=== PATIENT | female | born 1990 | race Two or more races ===

== ENCOUNTER 2025-01-27 16:00 | Inpatient (IN) | payer MEDICAID, SELFPAY ==
[2025-01-27 16:01] VITALS: BMI 32.0
[2025-01-27 16:27] VITALS: BP 119/79; PULSE 130; RESP 22; TEMP 39.4; O2SAT 98
--- NOTE | 2025-01-27 16:35 | PC.NURSE ---
sepsis alert called
--- NOTE | 2025-01-27 16:36 | XR_ITS ---
EXAMINATION: PA lateral chest 2 views TECHNIQUE: Upright PA lateral chest 2 views Date and time: January 27, 2025, 1643 hours INDICATIONS: Fever cough and shortness of breath 3 days. FINDINGS: Early right perihilar right basilar pneumonia Normal heart size The Greg structures are intact IMPRESSION: Early right perihilar right basilar pneumonia
--- NOTE | 2025-01-27 16:37 | XR_ITS ---
Examination: CT abdomen with intravenous contrast CT pelvis with intravenous contrast 2-D coronal reconstructions 2-D sagittal reconstructions Date and time of exam: January 27, 20252007 hours INDICATIONS: Onset right lower abdominal pain today. CTDI: vol (mGy) 10.3 DLP: (mGycm) 550 Technique: Multiple axial sections of the abdomen and pelvis have been obtained. 64 slice high-resolution scanner used. 3 mm axial sections have been obtained, post intravenous injection 60 cc [id number] 2-D sagittal, coronal reconstructions obtained. Low dose protocols were performed. One or more of the following dose reduction techniques were used; automated exposure control, adjustment of the mA and/or KV according to patient size, use of iterative reconstruction technique. Findings: No focal liver or splenic lesions Cholelithiasis No pancreatic edema Normal adrenal glands No renal or ureteral calculi, no hydronephrosis Aorta normal size Thickened fluid-filled inflamed appendix medial to the cecum, axial images 143 through 147 No pelvic abscess No pelvic mass Urinary bladder intact IMPRESSION: Acute appendicitis, no pelvic abscess
--- NOTE | 2025-01-27 16:37 | PD.EDRME ---
Rapid Medical Screening Exam [facility] Arrival date/time: 01/27/25 16:00 34-year-old female with no known medical history presents to the emergency room with a chief complaint of fevers, right lower quadrant abdominal pain, nausea, vomiting x 2 days I have greeted and performed a focused initial assessment of this patient. A comprehensive ED assessment and evaluation of the patient, analysis of all test results, and completion of the medical decision making process will be conducted by additional ED providers. Chief Complaint: General Adult/Misc Complain Time Seen by Provider: 01/27/25 16:12 Vital signs: Vital Signs Temperature 103 F H 01/27/25 16:27 Pulse Rate 130 H 01/27/25 16:27 Respiratory Rate 22 H 01/27/25 16:27 Blood Pressure 119/79 01/27/25 16:27 Pulse Oximetry (%) 98 01/27/25 16:27 Oxygen Delivery Method Room Air 01/27/25 16:27 Vital signs reviewed by provider: Yes Exam: Patient has tenderness with palpation in the right lower quadrant and epigastric area of the patient's abdomen. Patient has a strong and regular rhythm S1 and S2 noted Clinical Impression: Appendicitis/gastroenteritis/urinary tract infection/sepsis
[2025-01-27 16:58] VITALS: TEMP 39.4
[2025-01-27 16:58] LABS: Lactate (Lactic Acid) 1.3 mMol/L (0.4-2.0)
[2025-01-27] MEDS: ACETAMINOPHEN 500 MG TABLET 1000 MG PO (16:58)
[2025-01-27 17:01] LABS: Basophils # (Auto) 0.1 Thou/mm3 (0.0-0.2); Basophils % (Auto) 1 % (0-2.5); Eosinophils # (Auto) 0.0 Thou/mm3 (0.0-0.5); Eosinophils % (Auto) 0 % (0-10); Hematocrit 43.7 % (36.0-46.0); Hemoglobin 15.3 g/dL (12.0-16.0); Immature Granulocytes Auto 0.03 Thou/mm3 (0.00-0.00); Lymphocytes # (Auto) 0.7 Thou/mm3 (1.0-4.8); Lymphocytes % (Auto) 9 % (10-50); Mean Corpuscular HGB Conc 35.0 g/dl (31.0-37.0); Mean Corpuscular Hemoglobin 31.5 pg (25.0-35.0); Mean Corpuscular Volume 90 fL (80-100); Monocytes # (Auto) 0.5 Thou/mm3 (0.0-0.8); Monocytes % (Auto) 6 % (0-12); Neutrophils # (Auto) 6.6 Thou/mm3 (1.8-7.7); Neutrophils % (Auto) 85 % (37-80); Nucleated Red Blood Cell # 0.00 Thou/mm3 (0.00-0.00); Nucleated Red Blood Cell % 0 /100 WBC (0); Platelet Count 162 Thou/mm3 (140-440); RDW Standard Deviation 41.3 fL (36.4-46.3); Red Blood Count 4.85 Miln/mm3 (4.00-5.20); White Blood Count 7.8 Thou/mm3 (3.6-11.0)
[2025-01-27 17:42] LABS: Alanine Aminotransferase 43 U/L (10-49); Albumin, Serum 4.9 gm/dL (3.5-5.0); Albumin/Globulin Ratio 1.8 (1.2-2.2); Alkaline Phosphatase 107 U/L (46-116); Anion Gap 11 (7-16); Aspartate Amino Transferase 27 U/L (0-34); BUN/Creatinine Ratio 14 Ratio (12-20); Bilirubin,Total 0.8 mg/dL (0.3-1.2); Blood Urea Nitrogen 14 mg/dL (9-23); Calcium 9.8 mg/dL (8.3-10.6); Calcium (Corrected) 9.8 mg/dL (8.5-10.1); Carbon Dioxide 24.5 mMol/L (20.0-31.0); Chloride 100 mMol/L (98-107); Creatinine (Component) 1.0 mg/dL (0.6-1.3); Estimated Creatinine Clearance 78.8 mL/min (>60); Globulin 2.8 gm/dL (2.3-3.5); Glucose 99 mg/dL (74-106); Osmolality,Calculated 270 (275-295); Potassium 3.6 mMol/L (3.4-5.1); Procalcitonin 0.22 ng/ml (0.0-0.49); Sodium 135 mMol/L (136-145); Total Protein 7.7 gm/dL (5.7-8.2); eGFR > 60 See Note
[2025-01-27 17:49] LABS: Collection Type, Urine Clean Catch
[2025-01-27 18:08] LABS: Bilirubin,Urine Negative (Negative); Blood,Urine 2+ (Negative); Clarity,Urine Clear (Clear/Hazy); Color,Urine Yellow (Lt Yel-Yel); Glucose, Urine Negative (Negative); Ketones,Urine 4+ (Negative); Leukocyte Esterase,Urine Negative (Negative); Nitrite,Urine Negative (Negative); PH,Urine 6.5 (5.0-7.0); Protein,Urine 2+ (Neg - Trace); RBC,Urine 12 /hpf (0-3); Specific Gravity,Urine 1.032 (1.001-1.035); Squamous Epithelial Cell,Urine 7 /hpf (0-5); Urobilinogen,Urine Negative mg/dL (0.0-1.0); WBC,Urine 7 /hpf (0-5)
[2025-01-27 18:15] LABS: Influenza A Ag Negative; Influenza B Ag Negative
[2025-01-27 18:48] VITALS: BP 111/69; PULSE 118; RESP 19; TEMP 37.7; O2SAT 99
[2025-01-27] MEDS: SODIUM CHLORIDE 0.9% 1000 ML 1,000 ML 999 ML IV ×2 (18:57→21:22)
[2025-01-27 19:30] LABS: HCG Qualitative,Urine Negative
--- NOTE | 2025-01-27 20:32 | PD.EDADULT ---
ED General RME/HPI General Chief complaint: General Adult/Misc Complain Stated complaint: MULTIPLE COMPLAINTS Time Seen by Provider: 01/27/25 16:12 Arrival date/time: 01/27/25 16:00 RME / HPI RME / HPI narrative: 01/27/25 16:00 34-year-old female with no known medical history presents to the emergency room with a chief complaint of fevers, right lower quadrant abdominal pain, nausea, vomiting x 2 days I have greeted and performed a focused initial assessment of this patient. A comprehensive ED assessment and evaluation of the patient, analysis of all test results, and completion of the medical decision making process will be conducted by additional ED providers. Dr. Ingram?s Main ED Evaluation: 34yo female presenting with flu-like symptoms characterized by headache, generalized abdominal pain, ongoing diarrhea (watery, non-explosive) in excess of 10 episodes over the last several days. No URI or cough. No urgency, frequency, or dysuria. No obvious infectious exposures or restaurant food ingestion. PMH unremarkable. Patient notes she's on a weight loss medication. PSH and social history are unremarkable. NKA. Related Data Home Medications ?Medication ?Instructions ?Recorded ?Confirmed No Known Home Medications 01/17/21 01/27/25 Allergies Allergy/AdvReac Type Severity Reaction Status Date / Time No Known Allergies Allergy Verified 01/27/25 16:04 Review of Systems Review of Systems Systems Reviewed: All systems reviewed, normal except as documented Past Medical History Past Medical History NEUROLOGIC: Negative Neurological Disorders CARDIAC: Negative Cardiac Disorders or Congestive Heart Failure RESPIRATORY: Negative Chronic Obstructive Pulmonary Disease (COPD) or Asthma GASTROINTESTINAL: Negative Gastrointestinal Disorders or Hepatitis GENITOURINARY: Negative Genitourinary Disorders or Renal Disease MUSCULOSKELETAL: Negative Musculoskeletal Disorders ENDOCRINE: Negative Endocrine Disorders, Diabetes Mellitus Type 1 or Diabetes Mellitus Type 2 HEMATOLOGIC: Negative Blood Disorders or Sickle Cell Disease OTHER HISTORY: Positive Chicken Pox; Negative Hospitalization, Autoimmune Disease, Down Syndrome, Developmental Delay, Shingles, Falls, Blood Transfusions, Blood Transfusion Reaction, Anesthesia Reactions, Organ Transplant, Chemotherapy, Radiation Therapy, Hyperbaric Therapy, MRSA, VRSA, Vancomycin-Resistant Enterococci, Human Immunodeficiency Virus (HIV), Measles, Mumps, Rubella (Tamazight Measles), Pertussis, Clostridium Difficile or Cancer Family History FAMILY HISTORY: Positive Family Cardiac Disorders (paternal father high bp); Negative Family Psychiatric Problems, Family Respiratory Disorders, Family Gastrointestinal Problems, Family Cancer, Family Surgery or Family Anesthesia Reaction Surgical History SURGICAL: Negative Section or Organ Transplant Social History SMOKING STATUS: Never smoker ED Exam Narrative Physical exam: GENERAL APPEARANCE: alert and oriented x 4, nontoxic, no acute distress VITALS: All vitals were reviewed and the pulse ox is 99% on room air, which is normal according to my interpretation. Febrile and tachycardic. HEENT: Normocephalic, atraumatic; pupils equal, round, reactive to light; EOMI; mucous membranes pink, moist; mildly injected posterior pharynx, no exudates or tonsillar hypertrophy NECK: Supple LUNGS: CTABL; no wheezes, no rales, no rhonchi HEART: Tachycardic, regular rhythm; normal S1, S2; no murmurs ABDOMEN: non distended; obese, soft, no tenderness, no guarding, no gross peritoneal findings EXTREMITIES: atraumatic; no edema NEUROLOGIC: awake; alert and oriented x4; cranial nerves II-XII grossly intact; no focal sensory or motor deficits PSYCHIATRIC: appropriate mood and affect SKIN: warm, dry, normal color; no rashes Course Course Course Narrative: 1635: Sepsis alert initiated by the initial PA. Orders made at this time are congruent with ED Adult Sepsis Order List. Re-evaluation is to be completed. CXR is ordered for determining the etiology of fever. 1856: NS IVF started. 2127: Sepsis reassessment performed consisting of lab review, vitals, physical exam including auscultation of heart, lungs, and visual evaluation of capillary refills, mucosal membranes and extremities. Quality Measures Current suspected stage: ruled out Possible source: GI tract/intra-abdominal Blood cultures ordered: yes Antibiotic ordered: Yes Pertinent labs: 01/27/25 16:40 Lactic Acid 1.3 mMol/L (0.4-2.0) Procalcitonin 0.22 ng/ml (0.0-0.49) sepsis Orders Category Date Time Status Bedside COVID-19 Antigen Test NOW Care 01/27/25 16:[address] Screening NOW Care 01/27/25 16:37 Active Insert IV STAT Care 01/27/25 16:[address] abdomen pelvis w con Stat Exams 01/27/25 16:37 Completed XR chest 2V Stat Exams 01/27/25 16:36 Completed Blood Culture (Lab) Stat Lab 01/27/25 16:42 Received CBC Stat Lab 01/27/25 16:40 Completed CMP [Comprehensive Metabolic Panel] Stat Lab 01/27/25 16:40 Completed HCG Qualitative,Urine Stat Lab 01/27/25 19:19 Completed Influenza A & B Rapid Panel Stat Lab 01/27/25 16:56 Completed Lactate (Lactic Acid) Stat Lab 01/27/25 16:40 Completed Procalcitonin Stat Lab 01/27/25 16:40 Completed UA [Urinalysis] Stat Lab 01/27/25 17:00 Completed Urine Culture Stat Lab 01/27/25 17:00 Received Acetaminophen Tab [Tylenol ES Tab] Med 01/27/25 16:41 Discontinued 1,000 mg PO X1 ONE Cefoxitin [Mefoxin Inj] 1 gm Med 01/27/25 20:45 Discontinued SODIUM CHLORIDE 0.9% (Popper) [Ns 0.9% (P)] 50 ml IV Q6HR Morphine* Inj Med 01/27/25 20:42 Discontinued 4 mg IVP X1 ONE Piper/Tazo Inj [Zosyn Inj] 4.5 gm Med 01/27/25 22:00 Discontinued Sodium Chloride 0.9% (Pop) [NS 0.9% mini bag] 100 ml IV Q8HR Sodium Chloride 0.9% 1000 ml [Ns] 1,000 ml Med 01/27/25 16:42 Discontinued IV 999 mls/hr Sodium Chloride 0.9% 1000 ml [Ns] 1,000 ml Med 01/27/25 20:41 Discontinued IV 999 mls/hr Vital Signs Vital signs: Vital Signs Temperature 103 F H 01/27/25 16:27 Pulse Rate 130 H 01/27/25 16:27 Respiratory Rate 22 H 01/27/25 16:27 Blood Pressure 119/79 01/27/25 16:27 Pulse Oximetry (%) 98 01/27/25 16:27 Oxygen Delivery Method Room Air 01/27/25 16:27 Discharge Plan Plan Patient Disposition: Admit Acute Care w/in Hospital Problem List Clinical Impression: Acute appendicitis MDM Narrative MDM hospital course (for use when minimal MDM required): Scribe Attestation: 01/27/25 Dixie Burgess am scribing for and in the presence of Dr. Ingram. 34yo female presenting with flu-like symptoms characterized by headache, generalized abdominal pain, ongoing diarrhea (watery, non-explosive) in excess of 10 episodes over the last several days. No URI or cough. No urgency, frequency, or dysuria. Please see PE findings. Lab markers including CBC and chemistries excluding low normal K 3.6. UA with evidence of dehydration with 4+ ketonuria, contaminated specimen. IV was established and was hydrated aggressively to correct volume deficit. Patient was additionally administered antipyretics, analgesics, antiemetic, and empiric antibiotic as the patient ruled in for sepsis. Patient referred for CT abdomen pelvis, which showed acute appendicitis. Surgeon contacted and suggests hospitalist to admit. Patient remained hemodynamically stable and was admitted to the hospitalist service. Dx: acute appendicitis Clinical Information Provided by: patient Medical Records reviewed [facility] (Per chart review, patient has no relevant previous ED visits or admissions to this facility.) Meds/Rx considered, not ordered None Labs/Rad/Tests considered, not ordered None Chronic Illness/Social Conditions which may negatively complicate care or outcome(s)-explain: None or not applicable Labs Labs: interpreted by me Imaging Imaging interpretation: interpreted by sd Imaging Interpretation(s): [facility] Signed Patient: SANTA CORNEJO. Record#: [id number] Birthdate: 1990 Age/Sex: 34 / F Location: [facility] Attending Dr: Ordering Physician: Tucker Rosa Date of Service: 01/27/25 Procedure(s): XR chest 2V Accession Number(s): [id number] cc: Tucker Rosa; Julio Porras MD~ EXAMINATION: PA lateral chest 2 views TECHNIQUE: Upright PA lateral chest 2 views Date and time: January 27, 2025, 1643 hours INDICATIONS: Fever cough and shortness of breath 3 days. FINDINGS: Early right perihilar right basilar pneumonia Normal heart size The Greg structures are intact IMPRESSION: Early right perihilar right basilar pneumonia Dictated By: Julio Porras MD Signed By: <Electronically signed by Julio Porras MD in OV> 01/27/25 9423 [facility] Signed Patient: SANTA CORNEJO Record#: [id number] Birthdate: 1990 Age/Sex: 34 / F Location: [facility] Attending Dr: Ordering Physician: Tucker Rosa Date of Service: 01/27/25 Procedure(s): CT abdomen pelvis w con Accession Number(s): [id number] cc: Tucker Rosa; Julio Porras MD; NO PRIMARY/FAMILY,PHYSICIAN~ Examination: CT abdomen with intravenous contrast CT pelvis with intravenous contrast 2-D coronal reconstructions 2-D sagittal reconstructions Date and time of exam: January 27, 2025, 2007 hours INDICATIONS: Onset right lower abdominal pain today. CTDI: vol (mGy) 10.3 DLP: (mGycm) 550 Technique: Multiple axial sections of the abdomen and pelvis have been obtained. 64 slice high-resolution scanner used. 3 mm axial sections have been obtained, post intravenous injection 60 cc [id number]-370 2-D sagittal, coronal reconstructions obtained. Low dose protocols were performed. One or more of the following dose reduction techniques were used; automated exposure control, adjustment of the mA and/or KV according to patient size, use of iterative reconstruction technique. Findings: No focal liver or splenic lesions Cholelithiasis No pancreatic edema Normal adrenal glands No renal or ureteral calculi, no hydronephrosis Aorta normal size Thickened fluid-filled inflamed appendix medial to the cecum, axial images 143 through 147 No pelvic abscess No pelvic mass Urinary bladder intact IMPRESSION: Acute appendicitis, no pelvic abscess Dictated By: Julio Porras MD Signed By: <Electronically signed by Julio Porras MD in OV> 01/27/252 Medication Administration(s) Medication Administration History Acetaminophen (Acetaminophen 325 Mg Tablet) 650 mg PO Q6H PRN PRN Reason: PAIN 1-3 OR FEVER > 100.4 Stop: 02/26/25 22:31 Lactated Ringer's (Lactated Ringers) 1,000 mls @ 75 mls/hr IV .[id number] JENNIFER Stop: 01/28/25 12:04 Last Admin: 01/27/25 23:44 Dose: 75 mls/hr Documented By: SUMAYA Ciprofloxacin/Dextrose (Cipro Ivpb) 400 mg in 200 mls @ 200 mls/hr IV Q12HR [facility] Stop: 02/03/25 22:39 Last Admin: 01/27/25 23:44 Dose: 200 mls/hr Documented By: SUMAYA Metronidazole (Flagyl 500 Mg Iv) 500 mg in 100 mls @ 200 mls/hr IV Q8HR [facility] Stop: 02/03/25 22:40 Last Admin: 01/28/25 05:25 Dose: 200 mls/hr Documented By: Infusion: 01/28/25 00:15 Dose: Infused Documented By: Admin: 01/27/25 23:45 Dose: 200 mls/hr Documented By: SUMAYA Morphine Sulfate (Morphine Sulf Inj 4 Mg/Ml Vial) 2 mg IVP Q4HR PRN PRN Reason: PAIN SCALE 7-10 (Severe Stop: 02/01/25 22:31 Ondansetron HCl (Ondansetron Inj 2 Mg/Ml Inj 2 Ml) 4 mg IVP Q6H PRN; Protocol PRN Reason: NAUSEA OR VOMITING Stop: 02/26/25 22:31 Discontinued Medications Acetaminophen (Acetaminophen 500 Mg Tablet) 1,000 mg PO X1 ONE Stop: 01/27/25 16:42 Last Admin: 01/27/25 16:58 Dose: 1,000 mg Documented By: TIM Acetaminophen (Acetaminophen 325 Mg Tablet) 650 mg PO Q6H PRN PRN Reason: PAIN OR FEVER > 100.4 Stop: 02/26/25 22:31 Sodium Chloride (Ns) 1,000 mls @ 999 mls/hr IV .Q1H1M ONE Stop: 01/27/25 17:42 Last Infusion: 01/27/25 20:58 Dose: Infused Documented By: Admin: 01/27/25 18:57 Dose: 999 mls/hr Documented By: TIM Sodium Chloride (Ns) 1,000 mls @ 999 mls/hr IV .Q1H1M ONE Stop: 01/27/25 21:41 Last Infusion: 01/27/25 22:25 Dose: Infused Documented By: Admin: 01/27/25 21:22 Dose: 999 mls/hr Documented By: TIM Cefoxitin Sodium 1 gm/ Sodium (Chloride) 50 mls @ 100 mls/hr IV Q6HR JENNIFER Stop: 02/03/25 20:44 Last Infusion: 01/27/25 22:15 Dose: Infused Documented By: Admin: 01/27/25 21:33 Dose: 100 mls/hr Documented By: CCT Piperacillin Sod/Tazobactam (Sod 4.5 gm/ Sodium Chloride) 100 mls @ 200 mls/hr IV Q8HR JENNIFER; Protocol Stop: 02/03/25 21:59 Last Admin: 01/27/25 23:16 Dose: Not Given Documented By: CCT Non-Admin Reason: Discontinued Morphine Sulfate (Morphine Sulf Inj 4 Mg/Ml Vial) 4 mg IVP X1 ONE Stop: 01/27/25 20:43 Last Admin: 01/27/25 21:32 Dose: 4 mg Documented By: CCT Morphine Sulfate (Morphine Sulf Inj 4 Mg/Ml Vial) 2 mg IVP Q2H PRN PRN Reason: PAIN SCALE 7-10 (Severe Stop: 02/01/25 22:31 Last Admin: 01/27/25 23:58 Dose: 2 mg Documented By: WO see above Consultations/Discussions re: Management Consult #1: Date/time: 01/27/25 9:39 pm Physician, specialty, service, details: Discussed case with Dr. Subramanian from general surgery regarding consultation. Discussed patients ED course, exam findings, labs, and radiology results. Agrees to consult. Consult #2: Date/time: 01/27/25 9:41 pm Physician, specialty, service, details: Discussed case with the resident physician, attending Dr. Miramontes from Hospitalist service regarding admission. Discussed patients ED course, exam findings, labs, and radiology results. The Hospitalist agrees to accept the patient for admission. Diagnosis Differential Diagnosis ED Complaint MDM: sepsis, dehydration, electrolyte abnormality, UTI, pneumonia, viral illness
[2025-01-27 21:30] VITALS: BP 115/73; PULSE 102; RESP 18; TEMP 37.4; O2SAT 100
[2025-01-27] MEDS: MORPHINE SULF INJ 4 MG/ML VIAL IVP (21:32)
[2025-01-27] MEDS: CEFOXITIN 1 GM in SODIUM CHLORIDE 0.9% (Popper) 50 ML IV (21:33)
[2025-01-27 21:36] VITALS: BP 116/69; PULSE 102; RESP 20; TEMP 38; O2SAT 98
[2025-01-27 21:44] VITALS: TEMP 38
--- NOTE | 2025-01-27 22:32 | ESHP_ITS ---
Documentation for date of: 01/27/25 [facility] History of Present Illness History of present illness: 34-year-old female with no significant medical history presents to the ED with a 2-day history of fever, right lower quadrant abdominal pain, nausea, and vomiting. She also reports flu-like symptoms, including a headache and generalized abdominal discomfort, along with ongoing diarrhea (watery, non- explosive), occurring over 10 times in the past several days. She denies any upper respiratory symptoms such as cough or congestion. No urinary urgency, frequency, or dysuria noted. She has not had any known infectious exposures or unusual food ingestion. The patient is currently taking a Wegovy for weight loss. She mentions that since starting the medication in April 2024 she has dropped approximately 45 pounds. ED course: Initial vitals include T 103, RR 22, HR 130, BP 119/79, 98% on room air. CBC unremarkable. CMP shows sodium 135, potassium 3.6, creatinine 1.0, LFTs within normal range, procalcitonin 0.22. CT abdomen showed thickened fluid-filled inflamed appendix, concerning for acute appendicitis. Chest x-ray shows early right perihilar right basilar pneumonia. UA unremarkable and was negative for hCG. In ED patient received 2 L of sodium chloride, morphine 4 mg IV x 1 and received cefoxitin 1 g IV x 1. Past medical history: As stated above. Allergies: NKDA Family history: Noncontributory. Social history: No alcohol use, no smoking, no illicit drug use. Patient admitted for possible appendicitis, pending surgery eval in a.m. Review of Systems Review of Systems Narrative Review of Systems: All systems reviewed negative unless stated otherwise above. Exam Vital Signs Temp Pulse Resp BP Pulse Ox O2 Del Method 100.4 F 102 H 20 116/69 98 Room Air 01/27/25 21:44 01/27/25 21:36 01/27/25 21:36 01/27/25 21:36 01/27/25 21:36 01/27/25 21:36 Narrative Exam General: AOx3, no acute distress, able to speak full sentences HEENT: NC/AT, mucous membranes moist, bilateral sclera anicteric Cardiovascular: regular rate and rhythm, S1/S2 present, no murmurs appreciated Pulmonary: clear to auscultation bilaterally, no rales/rhonchi/wheezes Abdominal: soft, mild tenderness in the b/l lower quadrants in particular on the right, non-distended, no rebound/guarding, normal bowel sounds present Musculoskeletal: normal ROM, no peripheral edema Skin: warm and dry, intact, no rashes, Neuro: CN II-XII intact, no focal deficits Results: Labs 01/28/25 04:53 01/28/25 04:53 Labs: Short CBC 01/27/25 Range/Units 16:40 WBC 7.8 (3.6-11.0) Thou/mm3 Hgb 15.3 (12.0-16.0) g/dL Hct 43.7 (36.0-46.0) % Plt Count 162 (140-440) Thou/mm3 BMP 01/27/25 16:40 Sodium 135 L Potassium 3.6 Chloride 100 Carbon Dioxide 24.5 BUN 14 Creatinine 1.0 Glucose 99 Calcium 9.8 Liver Function 01/27/25 Range/Units 16:40 Total Bilirubin 0.8 (0.3-1.2) mg/dL AST 27 (0-34) U/L ALT 43 (10-49) U/L Alkaline Phosphatase 107 (46-116) U/L Albumin 4.9 (3.5-5.0) gm/dL Urine 01/27/25 Range/Units 17:00 Urine Color Yellow (Lt Yel-Yel) Urine Clarity Clear (Clear/Hazy) Urine pH 6.5 (5.0-7.0) Ur Specific Lima 1.032 (1.001-1.035) Urine Protein 2+ A (Neg - Trace) Urine Glucose (UA) Negative (Negative) Quality Measures Quality Measures VTE prophylaxis and sepsis Current suspected stage: ruled out Possible source: GI tract/intra-abdominal Blood cultures ordered: yes Antibiotic ordered: Yes Medications Home Medications and Allergies Home Medications ?Medication ?Instructions ?Recorded ?Confirmed ?Type No Known Home Medications 01/17/2101/18 History Allergies Allergy/AdvReac Type Severity Reaction Status Date / Time No Known Allergies Allergy Verified 01/27/25 16:04 Visit Medications Cefoxitin Sodium 1 gm/ Sodium (Chloride) 50 mls @ 100 mls/hr IV Q6HR JENN[facility]ER Stop: 02/03/25 20:44 Last Infusion: 01/27/25 22:15 Dose: Infused Piperacillin Sod/Tazobactam (Sod 4.5 gm/ Sodium Chloride) 100 mls @ 200 mls/hr IV Q8HR [facility]; Protocol Stop: 02/03/25 21:59 Discontinued Medications Acetaminophen (Acetaminophen 500 Mg Tablet) 1,000 mg PO X1 ONE Stop: 01/27/25 16:42 Last Admin: 01/27/25 16:58 Dose: 1,000 mg Sodium Chloride (Ns) 1,000 mls @ 999 mls/hr IV .Q1H1M ONE Stop: 01/27/25 17:42 Last Infusion: 01/27/25 20:58 Dose: Infused Sodium Chloride (Ns) 1,000 mls @ 999 mls/hr IV .Q1H1M ONE Stop: 01/27/25 21:41 Last Infusion: 01/27/25 22:25 Dose: Infused Morphine Sulfate (Morphine Sulf Inj 4 Mg/Ml Vial) 4 mg IVP X1 ONE Stop: 01/27/25 20:43 Last Admin: 01/27/25 21:32 Dose: 4 mg Assessment & Plan Plan 34-year-old female with no significant medical history presents to the ED with a 2-day history of fever, right lower quadrant abdominal pain, nausea, and vomiting. She also reports flu-like symptoms, including a headache and generalized abdominal discomfort, along with ongoing diarrhea (watery, non- explosive), occurring over 10 times in the past several days. Patient admitted for possible appendicitis, pending surgery eval in a.m. #Acute appendicitis #Intractable nausea and vomiting #Abdominal pain 2-day history of fever, right lower quadrant abdominal pain, nausea, and vomiting. Patient presented with temperature 103, HR 130, RR 22 Patient does not appear toxic Abdominal exam showed mild tenderness in the b/l lower quadrants in particular on the right CT abdomen showed thickened fluid-filled inflamed appendix, concerning for acute appendicitis. Pro-Luis unremarkable UA unremarkable Flu and COVID-negative Presentation is atypical for appendicitis. Plan ? General Surgery consulted, Dr. Sage aware, to assess in a.m. ? Started on ciprofloxacin 400 mg IV every 12 hours and metronidazole 500 mg IV every 8 hours ? N.p.o. ? Analgesia as needed ? Maintenance fluids with LR x 1 bag ? Follow-up on blood and urine culture #Diarrhea DDx likely viral, very low suspicion of bacterial (C. difficile) Ongoing diarrhea (watery, non-explosive), occurring over 10 times in the past several days No recent antibiotic use, PPI Plan ? Supportive management at this time with IV fluids and replenishment of electrolytes Health Maintenance: Diet: N.p.o. GI prophylaxis: None at this time DVT prophylaxis: SCDs as pending surgery eval in a.m. Antibiotics: Ciprofloxacin and metronidazole CODE STATUS: Full Disposition: [facility] Case discussed with my attending Dr. Miramontes, and senior resident, Dr. Dorothy Harrington MD PGY-1 Attending Provider Attestation/Addendum After examination of the patient and review of the clinical data I feel that this patient needs admission to the hospital for further treatment/evaluation. Plan of care discussed with patient and is in agreement. I Adelfo Miramontes MD, attest that I was physically present for jack portions of evaluation, and examined patient, labs and imagings and plan of care were discussed with IM residents team, and I agree with the findings and plans documented above.
--- NOTE | 2025-01-27 23:11 | PC.NURSE ---
Report given to PANCHO Walsh
[2025-01-27 23:34] VITALS: BMI 34.9
[2025-01-27] MEDS: CIPROFLOXACIN/D5w 400 MG IVPB 400 MG/200 ML BAG 200 MG IV (23:44)
[2025-01-27] MEDS: RINGERS LACTATED 1000 ML 1,000 ML 75 ML IV (23:44)
[2025-01-27] MEDS: metroNIDAZOLE/NS 500 MG IVPB 500 MG/100 ML BAG 200 MG IV (23:45)
[2025-01-27] MEDS: MORPHINE SULF INJ 4 MG/ML VIAL 2 MG IVP (23:58)
[2025-01-28] VITALS (16 sets, daily range): BP systolic 112–138; BP diastolic 52–80; PULSE 83–118; RESP 14–96; TEMP 36.2–39.6; O2SAT 95–100
[2025-01-28] MEDS: metroNIDAZOLE/NS 500 MG IVPB 500 MG/100 ML BAG 200 MG IV ×3 (05:25→21:25)
[2025-01-28 05:53] LABS: Basophils # (Auto) 0.0 Thou/mm3 (0.0-0.2); Basophils % (Auto) 0 % (0-2.5); Eosinophils # (Auto) 0.0 Thou/mm3 (0.0-0.5); Eosinophils % (Auto) 0 % (0-10); Hematocrit 35.2 % (36.0-46.0); Hemoglobin 12.1 g/dL (12.0-16.0); Immature Granulocytes Auto 0.03 Thou/mm3 (0.00-0.00); Lymphocytes # (Auto) 1.0 Thou/mm3 (1.0-4.8); Lymphocytes % (Auto) 16 % (10-50); Mean Corpuscular HGB Conc 34.4 g/dl (31.0-37.0); Mean Corpuscular Hemoglobin 31.4 pg (25.0-35.0); Mean Corpuscular Volume 91 fL (80-100); Monocytes # (Auto) 0.6 Thou/mm3 (0.0-0.8); Monocytes % (Auto) 9 % (0-12); Neutrophils # (Auto) 4.8 Thou/mm3 (1.8-7.7); Neutrophils % (Auto) 74 % (37-80); Nucleated Red Blood Cell # 0.00 Thou/mm3 (0.00-0.00); Nucleated Red Blood Cell % 0 /100 WBC (0); Platelet Count 137 Thou/mm3 (140-440); RDW Standard Deviation 42.1 fL (36.4-46.3); Red Blood Count 3.85 Miln/mm3 (4.00-5.20); White Blood Count 6.5 Thou/mm3 (3.6-11.0)
[2025-01-28 06:19] LABS: Alanine Aminotransferase 27 U/L (10-49); Albumin, Serum 3.9 gm/dL (3.5-5.0); Albumin/Globulin Ratio 2.0 (1.2-2.2); Alkaline Phosphatase 87 U/L (46-116); Anion Gap 12 (7-16); Aspartate Amino Transferase 18 U/L (0-34); BUN/Creatinine Ratio 13 Ratio (12-20); Bilirubin,Total 0.5 mg/dL (0.3-1.2); Blood Urea Nitrogen 9 mg/dL (9-23); Calcium 8.2 mg/dL (8.3-10.6); Calcium (Corrected) 8.3 mg/dL (8.5-10.1); Carbon Dioxide 23.5 mMol/L (20.0-31.0); Chloride 103 mMol/L (98-107); Creatinine (Component) 0.7 mg/dL (0.6-1.3); Estimated Creatinine Clearance 117.9 mL/min (>60); Globulin 2.0 gm/dL (2.3-3.5); Glucose 88 mg/dL (74-106); Magnesium 1.6 mg/dL (1.6-2.6); Osmolality,Calculated 273 (275-295); Phosphorous 2.5 mg/dL (2.4-5.1); Potassium 3.0 mMol/L (3.4-5.1); Sodium 138 mMol/L (136-145); Total Protein 5.9 gm/dL (5.7-8.2); eGFR > 60 See Note
--- NOTE | 2025-01-28 08:47 | PD.SURCONS ---
HPI Consult details History of present illness: 34F presenting with abdominal pain, diarrhea and fever/chills. Patient reports symptoms began 4 days ago with no clear inciting factor, she did not eat anything different, did not take any different medication and had no sick contacts. She noted diffuse abdominal pain which eventually migrated to the right lower quadrant, associate with nausea and multiple episodes of watery diarrhea. She has never had similar symptoms. Because she was not feeling better after several days at home, she sought care in ER yesterday where she had a Tmax of 103, normal WBC with no shift, however CT showing thickened and inflamed appendix. At the moment she feels slightly better with improved pain although continues to have diarrhea, nausea and abdominal tenderness especially in the right lower quadrant PMH: None PSH: None Meds: Ibuprofen as needed Allergies: NKDA Review of Systems Review of Systems ROS Unobtainable: All systems reviewed & no additional complaints except as documented Meds Home Medications and Allergies Home Medications ?Medication ?Instructions ?Recorded ?Confirmed ?Type No Known Home Medications 01/17/21 01/27/25 History Allergies Allergy/AdvReac Type Severity Reaction Status Date / Time No Known Allergies Allergy Verified 01/27/25 16:04 Exam Vital Signs Temp Pulse Resp BP Pulse Ox O2 Del Method 97.1 F 118 H 15 120/71 96 Room Air 01/28/25 07:45 01/28/25 07:45 01/28/25 07:45 01/28/25 07:45 01/28/25 07:45 01/28/25 07:45 Constitutional Constitutional: no acute distress Routine Respiratory Exam Respiratory: Present no resp distress Routine Abdominal Exam Abdominal: Present soft, tenderness (mild RLQ tenderness to deep palpation ) and rebound; Absent distended, guarding or firm Results Results: Laboratory Laboratory results: results reviewed Results: Imaging CT scan - abdomen: report reviewed and image reviewed Assessment & Plan Plan 34F presenting with abdominal pain, diarrhea and fever/chills for four days with Tmax [address] AP showing thickened and inflamed appendix. I explained to patient that her presentation is not exactly consistent with acute appendicitis, given the duration of her symptoms, degree of fever and association with watery diarrhea. She does, however, have right lower quadrant tenderness as well as rebound, totaling an Manzanares score of 5 which indicates possible appendicitis. I explained alternatives/benefits/risks of surgery including need for conversion to open, bleeding, secondary infection, as well as the possibility that if the appendix is too walled off I may not be able to safely remove it, in which case I would simply washout and possibly place a drain. Patient expressed understanding and does prefer to proceed with surgery OR this am for laparoscopic appendectomy, possible open
[2025-01-28] MEDS: CIPROFLOXACIN/D5w 400 MG IVPB 400 MG/200 ML BAG 200 MG IV ×2 (09:08→20:04)
--- NOTE | 2025-01-28 09:39 | PC.NURSE ---
Patient off the floor for surgery. Will start pottassium when she gets back on floor
--- NOTE | 2025-01-28 10:45 | SUR.PHASEI ---
PT RECEIVED TO PACU BAY 1. VSS. BREATHING EVEN AND UNLABORED. DENIES PAIN AND NAUSEA. DERMABOND INTACT TO ABDOMEN X3. REPORT FROM NURSE CHASE AND JUVENCIO JAUREGUI.
--- NOTE | 2025-01-28 10:47 | ESOP_ITS ---
Date of Procedure 01/28/25 Pre Op Diagnosis Acute appendicitis Post Op Diagnosis Minimally inflamed appendix Procedure Laparoscopic appendectomy Findings Appendix with mild inflammation, no periappendiceal adhesions or signs of peritonitis Procedure Description After discussion of risks and benefits, patient was brought to the operating luna m, SCDs were placed and general anesthesia was induced. She had already received preoperative antibiotics and was prepped and draped in the usual sterile fashion. After timeout an infraumbilical incision was made with a #15 blade and the skin was elevated with towel clamps. A Veress needle was placed through the incision and proper positioning was confirmed with a drop test at which point the abdomen was insufflated to 12 mmHg. The Veress needle was then exchanged for a 5 mm camera using a Visiport technique. There were no signs of injury from the point of entry. 2 additional ports were placed under direct vision, one 5 mm at the left lower quadrant and one 5 mm at the suprapubic region. The infraumbilical port was upsized to a 12 mm also under direct vision. Patient was placed in Trendelenburg with left side down. The appendix was easily identified by tracing the taeinea of the colon and was noted to be very minimally inflamed. It was only slightly dilated and there were no periappendiceal adhesions as typically seen with appendicitis especially of a few days' duration. I made a window between the base of the appendix and the mesoappendix using blunt dissection, and the base of the appendix was stapled with a 45 mm blue load. The mesoappendix was transected with the harmonic scalpel. The appendix was removed in an Endo Catch bag via the infraumbilical port and the infraumbilical fascia was closed with 0 Vicryl suture using Chad- Simeon. The staple line was irrigated and there were no signs of bleeding. The pelvis was also gently irrigated and there was no pus. Pneumoperitoneum was released and ports were removed under direct vision. Incisions were irrigated and infiltrated with half percent Marcaine for a total of 30 cc. Incisions were closed with 4-0 Monocryl and reinforced with Dermabond. Patient was extubated and brought to PACU in stable condition Pathology / specimen Other (Appendix) Estimated Blood Loss 25 Surgeon Cassie Subramanian MD Surgical Staff Operation Date: 01/28/25 10:45 Case Staff WINDOW COVERING SALES CONSULTANT: Seth Beverly RN First Assistant: Jennifer Garcia
--- NOTE | 2025-01-28 11:15 | SUR.PHASEI ---
REPORT CALLED TO TANYA ON MS. PT VSS. BREATHING EVEN AND UNLABORED. DENIES PAIN AND NAUSEA. DERMABOND DRESSING REMAINS CDI X3. TRANSPORTED TO ROOM VIA [facility].
[2025-01-28] MEDS: MORPHINE SULF INJ 4 MG/ML VIAL 2 MG IVP ×2 (12:15→19:29)
--- NOTE | 2025-01-28 13:11 | ESPR_ITS ---
<Statement entered by Stanford Holley MD - 01/28/25 19:09> Patient seen and examined at bedside. I discussed and supervised with the software intern physician who took care of this patient. I personally saw and examined the patient. I agree with most of the assessment and plan. Plan of care discussed with attending Dr. Mcintosh. Stanford Holley MD PGY-2 Documentation for date of: 01/28/25 Subjective Subjective Interval history: 34F with no significant PMHx presented on 01/28/2025 for evaulation of 3d hx of fever, abdominal pain, and diarrhea. Denies urinary sxs, nausea, vomiting. No sick contacts, or recent travel, or ingestion of unusual food. Patient has been on Wegovy since April 2024 and reports 45lb loss from it. Patient has been afebrile shortly after presentation, and stayed afebrile until now. additionally states that the abdominal pain with defecation. Exam Vital Signs Temp Pulse Resp BP Pulse Ox O2 Del Method O2 Flow Rate 97.5 F 85 16 113/68 95 Room Air 6 01/28/25 11:52 01/28/25 11:52 01/28/25 11:52 01/28/25 11:52 01/28/25 11:52 01/28/25 11:52 01/28/25 10:50 Narrative Exam General: AOx3, no acute distress, able to speak full sentences HEENT: NC/AT, mucous membranes moist, bilateral sclera anicteric Cardiovascular: regular rate and rhythm, S1/S2 present, no murmurs appreciated Pulmonary: clear to auscultation bilaterally, no rales/rhonchi/wheezes Abdominal: soft, non-distended, deminished bowel sounds, mild tenderness in the b/l lower quadrants in particular on the right, no guarding Musculoskeletal: normal ROM, no peripheral edema Skin: warm and dry, intact, no rashes, Neuro: CN II-XII intact, no focal deficits Objective Labs 01/29/25 05:15 01/29/25 05:15 Labs: Laboratory Results - last 24 hr 01/27/25 01/27/25 01/27/25 16:40 16:56 17:00 WBC 7.8 RBC 4.85 Hgb 15.3 Hct 43.7 MCV 90 MCH 31.5 MCHC 35.0 RDW Std Deviation 41.3 Plt Count 162 Neut % (Auto) 85 H Lymph % (Auto) 9 L [place] % (Auto) 6 Eos % (Auto) 0 Baso % (Auto) 1 Neut # (Auto) 6.6 Lymph # (Auto) 0.7 L [place] # (Auto) 0.5 Eos # (Auto) 0.0 Baso # (Auto) 0.1 Immature Gran # (Auto) 0.03 H Absolute Nucleated RBC 0.00 Immature Gran % 0 Nucleated RBC % 0 Sodium 135 L Potassium 3.6 Chloride 100 Carbon Dioxide 24.5 Anion Gap 11 BUN 14 Creatinine 1.0 Estim Creat Clear Calc 78.8 eGFR > 60 BUN/Creatinine Ratio 14 Glucose 99 Calculated Osmolality 270 L Lactic Acid 1.3 Calcium 9.8 Corrected Calcium 9.8 Phosphorus Magnesium Total Bilirubin 0.8 AST 27 ALT 43 Alkaline Phosphatase 107 Total Protein 7.7 Albumin 4.9 Globulin 2.8 Albumin/Globulin Ratio 1.8 Procalcitonin 0.22 Ur Collection Type Clean Catch Urine Color Yellow Urine Clarity Clear Urine pH 6.5 Ur Specific [place] 1.032 Urine Protein 2+ A Urine Glucose (UA) Negative Urine Ketones 4+ A Urine Blood 2+ A Urine Nitrite Negative Urine Bilirubin Negative Urine Urobilinogen (Auto) Negative Ur Leukocyte Esterase Negative Urine RBC 12 H Urine WBC 7 H Ur Squamous Epith Cells 7 H Urine Bacteria None Urine HCG, Qual Influenza A (Rapid) Negative Influenza B (Rapid) Negative 01/27/25 01/28/25 19:19 04:53 WBC 6.5 RBC 3.85 L Hgb 12.1 D Hct 35.2 L MCV 91 MCH 31.4 MCHC 34.4 RDW Std Deviation 42.1 Plt Count 137 L Neut % (Auto) 74 Lymph % (Auto) 16 [place] % (Auto) 9 Eos % (Auto) 0 Baso % (Auto) 0 Neut # (Auto) 4.8 Lymph # (Auto) 1.0 [place] # (Auto) 0.6 Eos # (Auto) 0.0 Baso # (Auto) 0.0 Immature Gran # (Auto) 0.03 H Absolute Nucleated RBC 0.00 Immature Gran % 1 H Nucleated RBC % 0 Sodium 138 Potassium 3.0 L D Chloride 103 Carbon Dioxide 23.5 Anion Gap 12 BUN 9 Creatinine 0.7 Estim Creat Clear Calc 117.9 eGFR > 60 BUN/Creatinine Ratio 13 Glucose 88 Calculated Osmolality 273 L Lactic Acid Calcium 8.2 L D Corrected Calcium 8.3 L D Phosphorus 2.5 Magnesium 1.6 Total Bilirubin 0.5 AST 18 ALT 27 Alkaline Phosphatase 87 D Total Protein 5.9 Albumin 3.9 D Globulin 2.0 L Albumin/Globulin Ratio 2.0 Procalcitonin Ur Collection Type Urine Color Urine Clarity Urine pH Ur Specific [place] Urine Protein Urine Glucose (UA) Urine Ketones Urine Blood Urine Nitrite Urine Bilirubin Urine Urobilinogen (Auto) Ur Leukocyte Esterase Urine RBC Urine WBC Ur Squamous Epith Cells Urine Bacteria Urine HCG, Qual Negative Influenza A (Rapid) Influenza B (Rapid) Quality Measures Quality Measures sepsis Current suspected stage: ruled out Possible source: GI tract/intra- abdominal Blood cultures ordered: yes Antibiotic ordered: Yes Assessment & Plan Assessment Current Active Medications: Generic Name Dose Route Start Last Admin Trade Name Freq PRN Reason Stop Dose Admin Acetaminophen 650 mg 01/28/25 03:53 Acetaminophen 325 Mg Tablet PO 02/26/25 22:31 Q6H PRN PAIN 1-3 OR FEVER > 100.4 Ciprofloxacin/Dextrose 400 mg in 200 mls @ 200 mls/hr 01/27/25 22:40 01/28/25 09:08 Cipro Ivpb IV 02/03/25 22:39 200 mls/hr Q12HR JENNIFER Administration Metronidazole 500 mg in 100 mls @ 200 mls/hr 01/27/25 22:41 01/28/25 13:10 Flagyl 500 Mg Iv IV 02/03/25 22:40 200 mls/hr Q8HR JENNIFER Administration Morphine Sulfate 2 mg 01/28/25 03:45 01/28/25 12:15 Morphine Sulf Inj 4 Mg/Ml Vial IVP 02/01/25 22:31 2 mg Q4HR PRN Administration PAIN SCALE 7-10 (Severe Ondansetron HCl 4 mg 01/27/25 22:32 Ondansetron Inj 2 Mg/Ml Inj 2 Ml IVP 02/26/25 22:31 Q6H PRN NAUSEA OR VOMITING Protocol Plan 34-year-old female with no significant medical history presents to the ED with a 2-day history of fever, right lower quadrant abdominal pain, nausea, and vomiting. She also reports flu-like symptoms, including a headache and generalized abdominal discomfort, along with ongoing diarrhea (watery, non- explosive), occurring over 10 times in the past several days. Patient admitted for possible appendicitis, underwent?laproscopic?appendectomy on 01/28/25 without complications.? Assessment & Plan: #Appendicitis, s/p appendectomy 01/28/2025 DDx viral gastroenteritis, pseudoappendicitis 2-day history of fever, right lower quadrant abdominal pain, nausea, and vomiting. Patient presented with temperature 103, HR 130, RR 22 Patient does not appear toxic Abdominal exam showed mild tenderness in the b/l lower quadrants in particular on the right CT abdomen showed thickened fluid-filled inflamed appendix, concerning for acute appendicitis. Pro-Luis unremarkable UA unremarkable Flu and COVID-negative Presentation is atypical for appendicitis. ? Patient underwent laproscopic appendectomy on 01/28/2025 Plan ? Started on ciprofloxacin 400 mg IV every 12 hours and metronidazole 500 mg IV every 8 hours - await regain of bowel fx - await B ctx results ? N.p.o. ? Analgesia as needed ? Maintenance fluids with LR x 1 bag ? Follow-up on blood and urine culture # Possible gastroenteritis DDx likely viral, very low suspicion of bacterial (C. difficile) Ongoing diarrhea (watery, non-explosive), occurring over 10 times in the past several days No recent antibiotic use, PPI Plan ? Supportive management at this time with IV fluids and replenishment of electrolytes - ordered stool antigen for Norovirus, EIA, Giardia Health Maintenance: Diet: N.p.o. GI prophylaxis: None at this time DVT prophylaxis: SCDs as pending surgery eval in a.m. Antibiotics: Ciprofloxacin and metronidazole CODE STATUS: Full Disposition: [facility] This case was discussed with my attending physician, Dr. Mcintosh, and senior resident, Dr Holley. Katy De Guzman, DO PGY I Attending Provider Attestation/Addendum I have seen and examined the patient. I was physically present for the jack portions of the services provided including history, physical exam, diagnosis, treatment plans and orders. I agree with assessment and plan of care as documented by residents. Even though this this note was carefully revised there may still be minor errors in overweaver due to voice recognition software. Kitty Mcintosh MD
[2025-01-28] MEDS: POTASSIUM CHL 10 mEq IVPB 10 MEQ/100 ML BAG 100 MEQ IV ×4 (13:49→17:50)
[2025-01-28] MEDS: ACETAMINOPHEN 325 MG TABLET 650 MG PO (21:32)
[2025-01-29] VITALS (9 sets, daily range): BP systolic 103–126; BP diastolic 63–76; PULSE 68–113; RESP 16–100; TEMP 36.4–37.7; O2SAT 94–97
[2025-01-29] MEDS: ACETAMINOPHEN 325 MG TABLET 650 MG PO (03:54)
[2025-01-29] MEDS: metroNIDAZOLE/NS 500 MG IVPB 500 MG/100 ML BAG 200 MG IV ×3 (05:38→21:17)
[2025-01-29 06:06] LABS: Basophils # (Auto) 0.0 Thou/mm3 (0.0-0.2); Basophils % (Auto) 0 % (0-2.5); Eosinophils # (Auto) 0.0 Thou/mm3 (0.0-0.5); Eosinophils % (Auto) 0 % (0-10); Hematocrit 32.7 % (36.0-46.0); Hemoglobin 11.3 g/dL (12.0-16.0); Immature Granulocytes Auto 0.04 Thou/mm3 (0.00-0.00); Lymphocytes # (Auto) 0.7 Thou/mm3 (1.0-4.8); Lymphocytes % (Auto) 13 % (10-50); Mean Corpuscular HGB Conc 34.6 g/dl (31.0-37.0); Mean Corpuscular Hemoglobin 31.0 pg (25.0-35.0); Mean Corpuscular Volume 90 fL (80-100); Monocytes # (Auto) 0.5 Thou/mm3 (0.0-0.8); Monocytes % (Auto) 9 % (0-12); Neutrophils # (Auto) 4.5 Thou/mm3 (1.8-7.7); Neutrophils % (Auto) 78 % (37-80); Nucleated Red Blood Cell # 0.00 Thou/mm3 (0.00-0.00); Nucleated Red Blood Cell % 0 /100 WBC (0); Platelet Count 146 Thou/mm3 (140-440); RDW Standard Deviation 42.5 fL (36.4-46.3); Red Blood Count 3.64 Miln/mm3 (4.00-5.20); White Blood Count 5.8 Thou/mm3 (3.6-11.0)
[2025-01-29 06:32] LABS: Alanine Aminotransferase 27 U/L (10-49); Albumin, Serum 3.8 gm/dL (3.5-5.0); Albumin/Globulin Ratio 2.0 (1.2-2.2); Alkaline Phosphatase 128 U/L (46-116); Anion Gap 12 (7-16); Aspartate Amino Transferase 24 U/L (0-34); BUN/Creatinine Ratio 10 Ratio (12-20); Bilirubin,Total 0.5 mg/dL (0.3-1.2); Blood Urea Nitrogen 6 mg/dL (9-23); Calcium 8.2 mg/dL (8.3-10.6); Calcium (Corrected) 8.4 mg/dL (8.5-10.1); Carbon Dioxide 25.1 mMol/L (20.0-31.0); Chloride 103 mMol/L (98-107); Creatinine (Component) 0.6 mg/dL (0.6-1.3); Estimated Creatinine Clearance 137.5 mL/min (>60); Globulin 1.9 gm/dL (2.3-3.5); Glucose 99 mg/dL (74-106); Magnesium 1.6 mg/dL (1.6-2.6); Osmolality,Calculated 277 (275-295); Phosphorous 2.3 mg/dL (2.4-5.1); Potassium 3.0 mMol/L (3.4-5.1); Sodium 140 mMol/L (136-145); Total Protein 5.7 gm/dL (5.7-8.2); eGFR > 60 See Note
--- NOTE | 2025-01-29 07:12 | PC.NURSE ---
surgeon at bedside rounding, POC discussed with pt, was made aware of fever 103 last night and burning when urinating.
--- NOTE | 2025-01-29 09:03 | PC.SS ---
Follow up note: On IV antibiotic. Pt will return home upon dc.
[2025-01-29] MEDS: CIPROFLOXACIN/D5w 400 MG IVPB 400 MG/200 ML BAG 200 MG IV ×2 (10:09→20:05)
--- NOTE | 2025-01-29 10:26 | PD.SURPROG ---
Documentation for date of: 01/29/25 Subjective Subjective Brief History: 34F presenting with abdominal pain, diarrhea and fever/chills. Patient reports symptoms began 4 days ago with no clear inciting factor, she did not eat anything different, did not take any different medication and had no sick contacts. She noted diffuse abdominal pain which eventually migrated to the right lower quadrant, associate with nausea and multiple episodes of watery diarrhea. She has never had similar symptoms. Because she was not feeling better after several days at home, she sought care in ER yesterday where she had a Tmax of 103, normal WBC with no shift, however CT showing thickened and inflamed appendix. At the moment she feels slightly better with improved pain although continues to have diarrhea, nausea and abdominal tenderness especially in the right lower quadrant PMH: None PSH: None Meds: Ibuprofen as needed Allergies: NKDA Narrative: Pain controlled, mild nausea but no vomiting and tolerating diet, had tmax of 103 last night, continuing to have loose stools Exam Vital Signs Temp Pulse Resp BP Pulse Ox O2 Del Method O2 Flow Rate 99.8 F 101 H 16 118/72 97 Room Air 6 01/29/25 08:00 01/29/25 08:00 01/29/25 08:00 01/29/25 08:00 01/29/25 08:00 01/29/25 08:00 01/28/25 10:50 Constitutional Constitutional: no acute distress Routine Respiratory Exam Respiratory: Present no resp distress Routine Abdominal Exam Abdominal: Present soft and tenderness (appropriate tenderness); Absent distended Results Results: Laboratory Laboratory results: results reviewed Results: Imaging CT scan - abdomen: report reviewed and image reviewed Assessment & Plan Plan 34F presenting with abdominal pain, diarrhea and fever/chills for four days with Tmax [address] AP showing thickened and inflamed appendix. Presentation was equivocal for acute appendicitis but after discussion of alternatives/risks/benefits pt preferred to proceed and underwent laparoscopic appendectomy 01/28 which showed minimal inflammation of the appendix. Pt continuing to have fever and loose stool, possibly representing enteritis From my standpoint there is no indication for antibiotics OK for dc from my standpoint, will follow up in 2 weeks PROCEDURES: Procedures Laparoscopic appendectomy
[2025-01-29] MEDS: POT PHOS 15 mMol in NS 250 ML 15 MMOL/250 ML BAG 62.5 MMOL IV ×2 (11:08→15:02)
[2025-01-29] MEDS: Magnesium Sulfate 2 GM Ivpb 2 GM/50 ML BAG IV (11:08)
--- NOTE | 2025-01-29 17:55 | ESPR_ITS ---
<Statement entered by Puja Chen MD - 01/30/25 19:35> Patient was seen and examined at bedside. I agree on the assessment and plan on this note as documented by resident Dr Katy De Guzman DO PGY1. 34-year-old female with past medical history as below, admitted for appendectomy, is stable currently however did have a fever of 103.2 overnight briefly, continues to complain of diarrhea will continue with ciprofloxacin and Flagyl for now, stable per general surgery however we will continue IV antibiotics and continue to monitor patient for any fevers overnight. Stool studies and antigens ordered. Case discussed with attending Dr. Kitty Chen MD PGY-2 Documentation for date of: 01/29/25 Subjective Subjective Interval history: Patient was seen and examined at bedside. No acute events took place overnight. Patient was febrile with T 103.2F overnight briefly, likely post op fever. Abdominal pain persists, and patient has already had a small BM. Her appetite is low, and although she eats minimally, denies nausea, or vomiting. Also complains of lower front rib cage pain, likely from bad positioning on her bed. Denies SOB, chest pressure, radiation of her pain to the arms/shoulders/neck. Encouraged to use incentive spirometry. Exam Vital Signs Temp Pulse Resp BP Pulse Ox O2 Del Method O2 Flow Rate 98.5 F 101 H 16 119/72 95 Room Air 6 01/29/25 16:00 01/29/25 16:00 01/29/25 16:00 01/29/25 16:00 01/29/25 16:00 01/29/25 16:00 01/28/25 10:50 Narrative Exam General: AOx3, no acute distress, able to speak full sentences HEENT: NC/AT, mucous membranes moist, bilateral sclera anicteric Cardiovascular: regular rate and rhythm, S1/S2 present, no murmurs appreciated Pulmonary: clear to auscultation bilaterally, no rales/rhonchi/wheezes Abdominal: soft, non-distended, deminished bowel sounds, mild tenderness in the b/l lower quadrants in particular on the right, no guarding Musculoskeletal: normal ROM, no peripheral edema Skin: warm and dry, intact, no rashes, Neuro: CN II-XII intact, no focal deficits Objective Labs 01/29/25 05:15 01/29/25 05:15 Labs: Laboratory Results - last 24 hr 01/29/25 05:15 WBC 5.8 RBC 3.64 L Hgb 11.3 L Hct 32.7 L MCV 90 MCH 31.0 MCHC 34.6 RDW Std Deviation 42.5 Plt Count 146 Neut % (Auto) 78 Lymph % (Auto) 13 [place] % (Auto) 9 Eos % (Auto) 0 Baso % (Auto) 0 Neut # (Auto) 4.5 Lymph # (Auto) 0.7 L [place] # (Auto) 0.5 Eos # (Auto) 0.0 Baso # (Auto) 0.0 Immature Gran # (Auto) 0.04 H Absolute Nucleated RBC 0.00 Immature Gran % 1 H Nucleated RBC % 0 Sodium 140 Potassium 3.0 L Chloride 103 Carbon Dioxide 25.1 Anion Gap 12 BUN 6 L Creatinine 0.6 Estim Creat Clear Calc 137.5 eGFR > 60 BUN/Creatinine Ratio 10 L Glucose 99 Calculated Osmolality 277 Calcium 8.2 L Corrected Calcium 8.4 L Phosphorus 2.3 L Magnesium 1.6 Total Bilirubin 0.5 AST 24 ALT 27 Alkaline Phosphatase 128 H D Total Protein 5.7 Albumin 3.8 Globulin 1.9 L Albumin/Globulin Ratio 2.0 Quality Measures Quality Measures VTE prophylaxis and sepsis Current suspected stage: ruled out Possible source: GI tract/intra-abdominal Blood cultures ordered: yes Antibiotic ordered: Yes Assessment & Plan Assessment Current Active Medications: Generic Name Dose Route Start Last Admin Trade Name Freq PRN Reason Stop Dose Admin Acetaminophen 650 mg 01/28/25 03:53 01/29/25 03:54 Acetaminophen 325 Mg Tablet PO 02/26/25 22:31 650 mg Q6H PRN Administration PAIN 1-3 OR FEVER > 100.4 Ciprofloxacin/Dextrose 400 mg in 200 mls @ 200 mls/hr 01/27/25 22:40 01/29/25 10:09 Cipro Ivpb IV 02/03/25 22:39 200 mls/hr Q12HR JENNIFER Administration Metronidazole 500 mg in 100 mls @ 200 mls/hr 01/27/25 22:41 01/29/25 14:54 Flagyl 500 Mg Iv IV 02/03/25 22:40 200 mls/hr Q8HR JENNIFER Administration Ibuprofen 600 mg 01/29/25 10:26 Ibuprofen Tab 600 Mg Tablet PO 02/28/25 10:25 Q6HR PRN PAIN SCALE 4-6 (Moderate Morphine Sulfate 2 mg 01/28/25 03:45 01/28/25 19:29 Morphine Sulf Inj 4 Mg/Ml Vial IVP 02/01/25 22:31 2 mg Q4HR PRN Administration PAIN SCALE 7-10 (Severe Ondansetron HCl 4 mg 01/27/25 22:32 Ondansetron Inj 2 Mg/Ml Inj 2 Ml IVP 02/26/25 22:31 Q6H PRN NAUSEA OR VOMITING Protocol Plan 34-year-old female with no significant medical history presents to the ED with a 2-day history of fever, right lower quadrant abdominal pain, nausea, and vomiting. She also reports flu-like symptoms, including a headache and generalized abdominal discomfort, along with ongoing diarrhea (watery, non- explosive), occurring over 10 times in the past several days. Patient admitted for possible appendicitis, underwent?laproscopic?appendectomy on 01/28/25 without complications.? Assessment & Plan: #Appendicitis, s/p appendectomy 01/28/2025 #post-op fever DDx viral gastroenteritis, pseudoappendicitis 2-day history of fever, right lower quadrant abdominal pain, nausea, and vomiting. Patient presented with temperature 103, HR 130, RR 22 Patient does not appear toxic Abdominal exam showed mild tenderness in the b/l lower quadrants in particular on the right CT abdomen showed thickened fluid-filled inflamed appendix, concerning for acute appendicitis. Pro-Luis unremarkable UA unremarkable Flu and COVID-negative Presentation is atypical for appendicitis. ? Patient underwent laproscopic appendectomy on 01/28/2025 ? U ctx negative Plan ? Started on ciprofloxacin 400 mg IV every 12 hours and metronidazole 500 mg IV every 8 hours - await B ctx results ? Diet Regular ? Analgesia as needed ? Maintenance fluids with LR x 1 bag ? Follow-up on blood ctx # Possible gastroenteritis DDx likely viral, very low suspicion of bacterial (C. difficile) Ongoing diarrhea (watery, non-explosive), occurring over 10 times in the past several days No recent antibiotic use, PPI Plan ? Supportive management at this time with IV fluids and replenishment of electrolytes - ordered stool antigen for Norovirus, EIA, Giardia Health Maintenance: Diet: N.p.o. GI prophylaxis: None at this time DVT prophylaxis: SCDs as pending surgery eval in a.m. Antibiotics: Ciprofloxacin and metronidazole CODE STATUS: Full Disposition: [facility] This case was discussed with my attending physician, Dr. Mcintosh, and senior resident, Dr Holley. Katy De Guzman, DO PGY I Attending Provider Attestation/Addendum I have seen and examined the patient. I was physically present for the jack portions of the services provided including history, physical exam, diagnosis, treatment plans and orders. I agree with assessment and plan of care as documented by residents. Even though this this note was carefully revised there may still be minor errors in scrap hoist operator due to voice recognition software. Kitty Mcintosh MD
[2025-01-29 18:00] LABS: Stool for WBCs None Seen (Negative)
[2025-01-30] VITALS: BP 99/73; PULSE 87; RESP 16; TEMP 36.2; O2SAT 98
[2025-01-30] MEDS: ACETAMINOPHEN 325 MG TABLET 650 MG PO (00:30)
[2025-01-30 04:00] VITALS: BP 100/58; PULSE 82; RESP 19; TEMP 36.2; O2SAT 98
[2025-01-30] MEDS: metroNIDAZOLE/NS 500 MG IVPB 500 MG/100 ML BAG 200 MG IV ×2 (05:44→14:01)
[2025-01-30 06:18] LABS: Basophils # (Auto) 0.0 Thou/mm3 (0.0-0.2); Basophils % (Auto) 1 % (0-2.5); Eosinophils # (Auto) 0.1 Thou/mm3 (0.0-0.5); Eosinophils % (Auto) 1 % (0-10); Hematocrit 34.6 % (36.0-46.0); Hemoglobin 11.8 g/dL (12.0-16.0); Immature Granulocytes Auto 0.06 Thou/mm3 (0.00-0.00); Lymphocytes # (Auto) 1.9 Thou/mm3 (1.0-4.8); Lymphocytes % (Auto) 34 % (10-50); Mean Corpuscular HGB Conc 34.1 g/dl (31.0-37.0); Mean Corpuscular Hemoglobin 31.4 pg (25.0-35.0); Mean Corpuscular Volume 92 fL (80-100); Monocytes # (Auto) 0.8 Thou/mm3 (0.0-0.8); Monocytes % (Auto) 14 % (0-12); Neutrophils # (Auto) 2.8 Thou/mm3 (1.8-7.7); Neutrophils % (Auto) 50 % (37-80); Nucleated Red Blood Cell # 0.00 Thou/mm3 (0.00-0.00); Nucleated Red Blood Cell % 0 /100 WBC (0); Platelet Count 151 Thou/mm3 (140-440); RDW Standard Deviation 43.8 fL (36.4-46.3); Red Blood Count 3.76 Miln/mm3 (4.00-5.20); White Blood Count 5.6 Thou/mm3 (3.6-11.0)
[2025-01-30 06:55] LABS: Alanine Aminotransferase 26 U/L (10-49); Albumin, Serum 3.8 gm/dL (3.5-5.0); Albumin/Globulin Ratio 1.8 (1.2-2.2); Alkaline Phosphatase 131 U/L (46-116); Anion Gap 10 (7-16); Aspartate Amino Transferase 28 U/L (0-34); BUN/Creatinine Ratio 10 Ratio (12-20); Bilirubin,Total 0.3 mg/dL (0.3-1.2); Blood Urea Nitrogen 6 mg/dL (9-23); Calcium 8.4 mg/dL (8.3-10.6); Calcium (Corrected) 8.6 mg/dL (8.5-10.1); Carbon Dioxide 29.1 mMol/L (20.0-31.0); Chloride 104 mMol/L (98-107); Creatinine (Component) 0.6 mg/dL (0.6-1.3); Estimated Creatinine Clearance 137.5 mL/min (>60); Globulin 2.1 gm/dL (2.3-3.5); Glucose 93 mg/dL (74-106); Magnesium 2.2 mg/dL (1.6-2.6); Osmolality,Calculated 282 (275-295); Phosphorous 3.3 mg/dL (2.4-5.1); Potassium 3.3 mMol/L (3.4-5.1); Sodium 143 mMol/L (136-145); Total Protein 5.9 gm/dL (5.7-8.2); eGFR > 60 See Note
[2025-01-30 07:15] VITALS: PULSE 80; RESP 18; RESP 98
[2025-01-30 08:00] VITALS: BP 121/64; PULSE 68; RESP 15; TEMP 36.4; O2SAT 96
[2025-01-30] MEDS: CIPROFLOXACIN/D5w 400 MG IVPB 400 MG/200 ML BAG 200 MG IV (08:42)
--- NOTE | 2025-01-30 10:44 | PC.SS ---
Late note 01-29-25: SS met with patient regarding her d/c plan. Pt is alert/oriented. Pt was admitted for.Possible Appendicitis. Pt confirmed demographic and contact information is correct on facesheet. Pt resides with . Pt ambulates independently without assistance or DME. Pt is ok with all ADLs. Patient?s pharmacy of choice is [facility] [address]. Pt named her life partner, Min Gonzalez medical decision maker if she is unable. Patient?s choice is to return home upon d/c. Pt does not have an advance directive, SS offered, and pt declined. Pt states not diabetic and is not on dialysis. Pt states she has an appointment with PCP. Life partner will provide transportation home. D/C plan: Return home Next of Kin: Min Gonzalez, life partner, phone# [phone] PCP: [facility] in [place] Address: Correct on facesheet
[2025-01-30 11:06] LABS: Campylobacter PCR Negative (Negative); Salmonella Species PCR Positive (Negative); Shiga Toxin PCR Negative (Negative); Shigella Species PCR Negative (Negative)
[2025-01-30 11:34] VITALS: BP 118/66; PULSE 68; RESP 18; TEMP 36.1; O2SAT 97
[2025-01-30 16:00] VITALS: BP 114/65; PULSE 82; RESP 16; TEMP 36.4; O2SAT 98
--- NOTE | 2025-01-30 19:10 | ESDS_ITS ---
<Statement entered by Stanford Holley MD - 01/31/25 15:16> Patient seen and examined at bedside. I discussed and supervised with the editorial intern physician who took care of this patient. I personally saw and examined the patient. I agree with most of the assessment and plan. Plan of care discussed with attending Dr. Mcintosh. Stanford Holley MD PGY-2 Planned Discharge Date 01/30/25 DS: Providers Provider Date of admission: 01/27/25 22:32 Primary care physician: Physician No Primary/Family Admitting Provider: Adelfo Miramontes MD Attending Provider on Admission: Kitty Mcintosh MD Consults: 01/27/25 22:38 Consult to General Surgery Stat Comment: Consulting Provider: Cassie Subramanian Attending Provider on DC: Kitty Mcintosh MD Discharging Provider: Katy De Guzman DO DS: Diagnosis Problem List Completed Was Problem List Reviewed/Reconciled?: Yes Hospital Course Hospital Course Hospital course: 34-year-old female with no significant medical history presents to the ED 01/27/2025 with a 2-day history of fever, right lower quadrant abdominal pain, nausea, and vomiting. She also reported flu-like symptoms, including a headache and generalized abdominal discomfort, along with ongoing diarrhea (watery, non- explosive), occurring over 10 times in the past several days. Patient febrile at presentation with T103, and abnormal vitals RR 22, HR 130. procalcitonin 0.22. CT abdomen showed thickened fluid-filled inflamed appendix, concerning for acute appendicitis. Chest x-ray shows early right perihilar right basilar pneumonia. UA unremarkable and was negative for hCG. Patient admitted for possible appendicitis. On the morning of 01/27/2025, patient underwent success ful appendectomy with removed tissue that showed only mild inflammation. Following the surgery, patient developed brief postop fever of 103 F, which subsequently resolved and patient stayed afebrile. WBC and Hgb remained within normal limit. Blood cultures were positive for Salmonella enterica in 1 out of 2 bottles. Patient had been started on ciprofloxacin IV 400 mg twice daily and metronidazole IV 500 mg 3 times daily. Ordered stool antigen testing for norovirus, Giardia, Helicobacter pylori which at the point of discharge are still pending. Patient's abdominal pain improved, however in the light of bacterial growth in blood cultures recommended complete 5-day course of Bactrim as outpatient. At the time of discharge, patient is medically stable and deemed safe to return to his/her previous state of living. Admission diagnosis: #Appendicitis, status post appendectomy 01/28/2025 #Possible gastroenteritis Discharge instructions: You have been started on the following medications: - TMP-SMX 400-80 mg twice daily for 5 days Please follow up with your primary doctor in 7-10 days Return to ED if you develop new or worsenign symptoms Avoid lifting objects >10lbs for 6 weeks You may resume showering in 2 days, on 01/30/25 At that time it is ok to get incisions wet, pat dry after Avoid bathing or swimming for 2 weeks During the surgery we fill your abdomen with air in order to see the structures. Some air tends to linger causing pain referred to the shoulder as well as pain with deep breaths. This will improve with time. Being out of bed and walking helps the air to absorb faster If you develop worsening pain, nausea/vomiting, fever or concerns about your incisions please seek care in ER. If non-urgent please feel free to call the office during business hours (M-F, 8-12pm and 1-4pm) at [phone] This case was discussed with my attending physician, Dr. Mcintosh, and senior resident, Dr Holley. Katy De Guzman, DO PGY I Status at Discharge Cognitive/behavioral status at discharge: Stable Overall status at discharge: patient is back to baseline Time Spent with Patient Time attestation: Total time spent providing and/or coordinating discharge services: 33 minutes Time spent: Greater than 30 minutes Exam Vital Signs Temp Pulse Resp BP Pulse Ox O2 Del Method O2 Flow Rate 97.5 F 82 16 114/65 98 Room Air 6 01/30/25 16:00 01/30/25 16:00 01/30/25 16:00 01/30/25 16:00 01/30/25 16:00 01/30/25 16:00 01/30/25 04:00 Narrative Exam General: Alert and oriented x3, No apparent distress. Skin: Intact, Warm, no rashes. HEENT: Normocephalic, Atraumatic. Normal neck range of motion, Supple. Trachea midline. Respiratory: Lungs are clear to auscultation, Breath sounds are equal bilaterally with equal chest expansion. Cardiovascular: RRR, normal S1, S2, No murmurs. Distal pulses 2+ Abdominal: soft, non-distended,?deminished?bowel sounds, mild tenderness in the?b/l?lower quadrants in particular on the right, no guarding or rigidity. Musculoskeletal/Extremities: No erythema, swelling, tenderness of any joints. No edema of BLE. DP pulses +2/3 b/l. Full active ROM of all four extremities. Neurologic: NEURO: Oriented x3, cranial nerves II to XII grossly intact. Cerebellar exam ([id number], [id number]) intact. Muscle strength 5/5 on UE and LE b/l, Moves extremities x4. Sensation intact to gross touch along C6-T1 and L2-S1 dermatomes. No focal neurologic deficits noted Psych: Thoughts linear and responses appropriate. Discharge Plan Plan Patient Disposition: HOME (Self Care) Patient condition on transfer: Stable Care Plan Goals: You have been started on the following medications: - TMP-SMX 400-80 mg twice daily for 5 days Please follow up with your primary doctor in 7-10 days Return to ED if you develop new or worsenign symptoms Avoid lifting objects >10lbs for 6 weeks You may resume showering in 2 days, on 01/30/25 At that time it is ok to get incisions wet, pat dry after Avoid bathing or swimming for 2 weeks During the surgery we fill your abdomen with air in order to see the structures. Some air tends to linger causing pain referred to the shoulder as well as pain with deep breaths. This will improve with time. Being out of bed and walking helps the air to absorb faster If you develop worsening pain, nausea/vomiting, fever or concerns about your incisions please seek care in ER. If non-urgent please feel free to call the office during business hours (M-F, 8-12pm and 1-4pm) at [phone] Prescriptions/Referrals Prescriptions/Med Rec: New sulfamethoxazole-trimethoprim [Bactrim] 400-80 mg tablet 1 tab PO BID 5 Days Qty: 10 0RF Referrals: Cassie Subramanian MD [Physician, General Surgery] Referral Note: You will receive a phone call to confirm a follow-up appt with me in 2 weeks No Primary/Family,Physician [Primary Care Provider] Patient/Caregiver Discharge Instructions Other Discharge Activity Instructions:: Avoid lifting objects >10lbs for 6 weeks You may resume showering in 2 days, on 01/30/25 At that time it is ok to get incisions wet, pat dry after Avoid bathing or swimming for 2 weeks During the surgery we fill your abdomen with air in order to see the structures. Some air tends to linger causing pain referred to the shoulder as well as pain with deep breaths. This will improve with time. Being out of bed and walking helps the air to absorb faster If you develop worsening pain, nausea/vomiting, fever or concerns about your incisions please seek care in ER. If non-urgent please feel free to call the office during business hours (M-F, 8-12pm and 1-4pm) at [phone] Education Materials: After an Appendectomy, What Is Appendicitis?, Preventing Surgical Site Infections, ED Bacteremia, Suspected (Adult) Print Language: Bruneian Stand Alone Forms: Jaylyn Award Info., Patient Portal Info Letter Discharge Order Discharge Orders: Discharge (Routine); Ordered 01/30/25 Ordered By: Stanford Holley Quality Discharge Quality Measures VTE prophylaxis Attestestation MD Attestation I have seen and examined the patient. I was physically present for the jack portions of the services provided including history, physical exam, diagnosis, treatment plans and orders. I agree with assessment and plan of care as documented by residents. Even though this this note was carefully revised there may still be minor errors in senior ios software engineer due to voice recognition software. Kitty Mcintosh MD
[2025-02-04 06:24] LABS: Giardia Result NOT DETECTED; Norovirus, EIA (Stool)* NOT DETECTED
== END 2025-01-30 16:23 | disposition home or self-care (01) | DRG 234 ==
LOC: SERX 22:31 → SERHOLD 23:02 → S3SX 23:29
PROVIDERS: Nurse Practitioner Family; Registered Nurse General Practice; Surgery; Admitting Provider Student in an Organized Health Care Education/Training Program; Emergency Provider Emergency Medicine; Visit Provider Student in an Organized Health Care Education/Training Program
PROC: 0DTJ4ZZ Resection of Appendix, Percutaneous Endoscopic Approach (ICD-10-PCS; CPT 44970; principal; 2025-01-28 10:30)
DX: K35.80 Unspecified acute appendicitis (principal); E86.0 Dehydration; A02.0 Salmonella enteritis; J18.9 Pneumonia, unspecified organism; R50.82 Postprocedural fever
CPT/HCPCS: 36415; 71046; 74177; 80053; 81001; 81025; 83605; 83735; 84100; 84145; 85025; 87040; 87077; 87086; 87186; 87205; 87329; 87449; 87502; 87635; 96361; 96365; 96366; 96375; 96376; 99284; A4217; A4649; J0131; J0330; J0694; J0744; J1100; J1885; J2270; J2405; J2704; J3010; J3475; J3480; J3490; J7030; J7050; J7120; J7999; Q9967; A9270; J1836

== ENCOUNTER 2025-02-10 13:07 | Outpatient (AMB) | payer MEDICAID, SELFPAY ==
[2025-02-10 13:20] VITALS: BP 105/69; PULSE 73; RESP 19; TEMP 36.3; O2SAT 97; BMI 32.1
--- NOTE | 2025-02-10 13:20 | PD.GSCLVISIT ---
Vital Signs - [facility] 02/10/25 13:20 Height 1.57 m Height Method Stated Weight 79.152 kg Weight Measurement Method Standing Scale BMI 32.1 BP 105/69 Blood Pressure Source Automatic Cuff Blood Pressure Location Left Upper Arm Position Sitting Respiration 19 Pulse 73 Pulse Source Monitor Temp 97.3 F Temp Source Temporal Artery Scan Pulse Oximetry (%) 97 Oxygen Delivery Method Room Air Med/Allergies Allergies & Medications Allergies No Known Allergies Allergy (Verified 02/10/25 13:21) Medication Reconciliation acetaminophen 325 mg tablet (Tylenol) 325 mg PO QID PRN 02/10/25 [History Confirmed 02/10/25] tramadol 25 mg tablet 25 mg PO Q6H PRN 02/10/25 [History Confirmed 02/10/25] MA Intake Visit Data Collection New Patient or Established: Established Patient (seen at [facility] within 3 years) Seen by Clinical Staff ONLY (RN/MA): No Reason for Visit:: 2 WEEK POST OP APPENDECTOMY Pain Present Currently: No Pain scale:: 2 Radiology Orderly Required: No PCP or OBGYN visit in last 3 months: Yes Hx Now: No Do You Feel Safe at Home: Yes Authorities Contacted: N/A Smoking Status Smoking Status: Never smoker Immunization / Flu Flu Vaccine in the Last 12 Months: No Flu Vaccine Exclusion Criteria: No Exclusion Criteria Past Medical History Past Medical History NEUROLOGIC: Negative Neurological Disorders or Seizures CARDIAC: Negative Cardiac Disorders or Congestive Heart Failure RESPIRATORY: Negative Chronic Obstructive Pulmonary Disease (COPD) or Asthma GASTROINTESTINAL: Negative Gastrointestinal Disorders or Hepatitis GENITOURINARY: Negative Genitourinary Disorders or Renal Disease ENDOCRINE: Negative Endocrine Disorders, Diabetes Mellitus Type 1 or Diabetes Mellitus Type 2 HEMATOLOGIC: Negative Blood Disorders or Sickle Cell Disease OTHER HISTORY: Positive Chicken Pox; Negative Hospitalization, Autoimmune Disease, Down Syndrome, Developmental Delay, Shingles, Falls, Blood Transfusions, Blood Transfusion Reaction, Anesthesia Reactions, Organ Transplant, Chemotherapy, Radiation Therapy, Hyperbaric Therapy, MRSA, VRSA, Vancomycin-Resistant Enterococci, Human Immunodeficiency Virus (HIV), Measles, Mumps, Rubella ([place] Measles), Pertussis, Clostridium Difficile or Cancer Family History FAMILY HISTORY: Positive Family Cardiac Disorders; Negative Family Psychiatric Problems, Family Respiratory Disorders, Family Gastrointestinal Problems, Family Cancer, Family Surgery or Family Anesthesia Reaction Surgical History SURGICAL: Negative Organ Transplant Social History SMOKING STATUS: Smoking status: Never smoker ALCOHOL: Alcohol Intake: Never HOUSING: Housing: House LIVES WITH: Lives With: Significant Other HPI HPI Narrative HISTORY OF PRESENT ILLNESS I, Cassie Suzequang, have obtained verbal consent from the patient, to be recorded during this encounter which may include, but not limited to, medical history, examination, treatment plans, and relevant health information.? Patient was informed that recording will be read and reviewed by myself before inclusion in the medical chart. The patient is a female who presents for a follow-up of appendectomy done on 01/28 She reports persistent pain, specifically intermittent rib discomfort that intensifies during ambulation. Her pain management regimen includes morning and as-needed Tylenol, with tramadol administered at night. She notes an overall improvement in her condition, although the rib pain is a new symptom. She experiences difficulty with deep inspiration but does not report any associated nausea. Her appetite remains satisfactory, and her previously reported diarrhea has resolved. She was contacted by the health department on Monday regarding the positive Salmonella test completed in the hospital. She also reports constipation and seeks advice on the use of laxatives. Additionally, she experiences fatigue, necessitating frequent naps ROS Review of Systems Systems Reviewed: All systems reviewed, normal except as documented Objective/Exam General General Appearance: alert, cooperative and well groomed Resp Respiratory exam: Absent respiratory distress Abdominal Abdominal exam: Present soft; Absent distention or tenderness Results Pathology of appendix reviewed Assessment & Plan Diagnosis / Problem List (1) Acute appendicitis: Status: Acute Assessment & Plan: 34F s/p appendectomy 01/28 in the setting of gastroenteritis. I reminded pt to avoid strenuous activity for 6 weeks postop and provided strict return precautions. All questions were answered and pt expressed understanding Office Procedures GNS Level of Care Nursing/Assessment Patient Status: Established Patient Nursing Assessment/Reassesment: Medication Reconciliation, Update PMH in EMR and Vital Signs Coordination of Care: Complex Care and Chronic Disease 1-5, Consent,records obtained, informed consent, Education Simp Pt/Fam, Results/Orders obtained and Staff clarify orders Established Patient Charge Established Patient Point Assignment: 90 Established Patient Point Charge: EP Level 3 (80-115) Patient Portal Questionaires Social History Living Situation History Housing: House Housing Other:: pt lives with life partner Tobacco History Smoking Status: Never smoker Alcohol History Alcohol Intake: Never Domestic Abuse History Do You Feel Safe at Home: Yes Review of Systems Report any current symptoms Only answer those that you have currently: Past Medical History Past Medical History Have you ever been diagnosed with any of the following: Neurological Problems Seizures: No Cardiology Problems Congestive Heart Failure: No Respiratory Problems Chronic Obstructive Pulmonary Disease (COPD): No Asthma: No Stomache/Intestinal Problems Hepatitis: No Genital/Urinary Problems Renal Disease: No Endocrine Problems Diabetes Mellitus Type 1: No Diabetes Mellitus Type 2: No Blood Problems Sickle Cell Disease: No Other Problems Hospitalization: No Autoimmune Disease: No Down Syndrome: No Developmental Delay: No Shingles: No Falls: No Blood Transfusions: No Blood Transfusion Reaction: No Anesthesia Reactions: No Organ Transplant: No Chemotherapy: No Radiation Therapy: No Hyperbaric Therapy: No MRSA: No VRSA: No Vancomycin-Resistant Enterococci: No Human Immunodeficiency Virus (HIV): No Chicken Pox: Yes Measles: No Mumps: No Rubella ([place] Measles): No Pertussis: No Clostridium Difficile: No Cancer: No
== END 2025-02-10 13:53 | disposition home or self-care (01) ==
LOC: HODSRG 13:07
PROVIDERS: Supervising Provider Orthopaedic Surgery Adult Reconstructive Orthopaedic Surgery; Visit Provider Orthopaedic Surgery Adult Reconstructive Orthopaedic Surgery
DX: Z48.815 Encounter for surgical aftercare following surgery on the digestive system (principal)
CPT/HCPCS: 99213; G0463